=== PATIENT | male | born 1975 | race Caucasian/White ===

== ENCOUNTER 2017-07-23 19:49 | Emergency (ER) | payer OTHER ==
[~2017-07-23] VITALS: Ht 182.9 cm; Wt 117.9 kg
[~2017-07-23 19:49] MED LIST: AMOXICILLIN250 MG PO; BACTRIM DS TAB1 EACH PO; FLEXERIL PO; HYDROCODONE-AP1 EAC6 PO; LIDOCAINE VISC100 M1 SWISH&SPIT; TRAMADOL 50 MG50 MG PO; VENTOLIN HFA INH8 GM IH; VICODIN 5-5001 EACH PO
[2017-07-23 20:00] VITALS: BP 159/91
[2017-07-23] MEDS ORDERED: BACTRIM DS TAB1 EACH PO (20:28)
[2017-07-23] MEDS ORDERED: KEFLEX500 M1 PO (20:28)
[2017-07-23] MEDS ORDERED: BACTROBAN CREAM30 G1 TOP (20:28)
== END 2017-07-23 20:39 | disposition home or self-care (01) ==
LOC: M.ERS 19:49
DX: L02.811 Cutaneous abscess of head [any part, except face] (principal)

== ENCOUNTER 2019-05-03 04:23 | Emergency (ER) | payer OTHER ==
[~2019-05-03] VITALS: Ht 182.9 cm; Wt 127.0 kg
[~2019-05-03 04:23] MED LIST changes: +BACTROBAN CREAM30 G1 TOP; +KEFLEX500 M1 PO
[2019-05-03 04:36] VITALS: BP 149/90
[2019-05-03] MEDS ORDERED: NORCO 5-325 TA1 EAC1 PO (04:37)
[2019-05-03] MEDS ORDERED: PENICILLIN VK500 MG PO (04:37)
== END 2019-05-03 04:46 | disposition home or self-care (01) ==
LOC: M.ERS 04:23
DX: K02.9 Dental caries, unspecified (principal); J45.909 Unspecified asthma, uncomplicated; F17.210 Nicotine dependence, cigarettes, uncomplicated

== ENCOUNTER 2019-07-10 05:20 | Emergency (ER) | payer OTHER ==
[~2019-07-10] VITALS: Ht 182.9 cm; Wt 127.0 kg
[~2019-07-10 05:20] MED LIST changes: +NORCO 5-325 TA1 EAC1 PO; +PENICILLIN VK500 MG PO
[2019-07-10] MEDS ORDERED: VENTOLIN HFA 1818 GM INH (05:40)
[2019-07-10] MEDS ORDERED: AMOXICILLIN875 MG PO (06:14)
[2019-07-10] MEDS ORDERED: MUCUS RELIEF1200 MG PO (06:15)
[2019-07-10 06:17] LABS: INFLUENZA A ANTIGEN Negative (Negative); INFLUENZA B ANTIGEN Negative (Negative)
[2019-07-10 06:20] VITALS: BP 136/76
== END 2019-07-10 06:20 | disposition home or self-care (01) ==
LOC: M.ERS 05:20
PROVIDERS: Personal Emergency Response Attendant
DX: J03.90 Acute tonsillitis, unspecified (principal); J32.9 Chronic sinusitis, unspecified; J45.909 Unspecified asthma, uncomplicated; F17.210 Nicotine dependence, cigarettes, uncomplicated; Z79.899 Other long term (current) drug therapy

== ENCOUNTER 2019-10-22 07:41 | Emergency (ER) | payer OTHER ==
[~2019-10-22] VITALS: Ht 182.9 cm; Wt 136.1 kg
[~2019-10-22 07:41] MED LIST changes: +AMOXICILLIN875 MG PO; +MUCUS RELIEF1200 MG PO; +VENTOLIN HFA 1818 GM INH
[2019-10-22 07:54] VITALS: BP 162/116
[2019-10-22] MEDS ORDERED: IBUPROFEN 800800 M1 PO (08:05)
[2019-10-22] MEDS ORDERED: NORCO 5-325 TA1 EAC1 PO (08:05)
[2019-10-22] MEDS ORDERED: PENICILLIN VK500 MG PO (08:05)
== END 2019-10-22 08:16 | disposition home or self-care (01) ==
LOC: M.ERS 07:41
DX: K02.9 Dental caries, unspecified (principal); J45.909 Unspecified asthma, uncomplicated; F17.210 Nicotine dependence, cigarettes, uncomplicated